=== PATIENT | male | born 1970 ===

== ENCOUNTER 2021-04-28 15:04 | Emergency (ER) | payer OTHER ==
[2021-04-28 16:12] LABS: HEMOGLOBIN 13.4 gm/dl (14.0-17.5); RED BLOOD COUNT 4.41 M/UL (4.20-5.50); WHITE BLOOD COUNT 4.1 K/UL (4.5-11.0)
[2021-04-28 16:33] LABS: BUN/CREATININE RATIO 22 (0-10)
== END 2021-04-29 00:13 | disposition home or self-care (01) ==
LOC: ER1 15:04
PROVIDERS: Preventive Medicine Occupational Medicine
DX: F15.10 Other stimulant abuse, uncomplicated (principal); Z20.822 Contact with and (suspected) exposure to COVID-19
CPT/HCPCS: 80053; 80307; 81001; 82140; 83690; 85025; 85652; 87086; 99285; G0480; J3486; U0002